=== PATIENT | male | born 1950 | race Caucasian/White ===

== ENCOUNTER → 2021-10-27 | Outpatient (CLI) | payer MEDICARE, OTHER | LOC: WCC 12:37 | DX: E83.59 Other disorders of calcium metabolism (principal); S91.302A Unspecified open wound, left foot, initial encounter; I25.10 Atherosclerotic heart disease of native coronary artery without angina pectoris; L84 Corns and callosities; M20.41 Other hammer toe(s) (acquired), right foot; M20.42 Other hammer toe(s) (acquired), left foot; I25.2 Old myocardial infarction; Z85.818 Personal history of malignant neoplasm of other sites of lip, oral cavity, and pharynx; Z93.0 Tracheostomy status; Z72.0 Tobacco use; X58.XXXA Exposure to other specified factors, initial encounter ==